=== PATIENT | female | born 2000 | race Caucasian/White ===

== ENCOUNTER 2023-04-03 14:27 | Emergency (ER) | payer OTHER ==
[2023-04-03 15:02] LABS: BASOPHILS ABSOLUTE AUTO 0.04 K/uL (0.00-0.20); BASOPHILS PERCENT AUTO 0.7 % (0.0-1.0); EOSINOPHILS ABSOLUTE AUTO 0.06 K/uL (0.00-0.45); EOSINOPHILS PERCENT AUTO 1.1 % (0.0-6.0); HEMATOCRIT 41.3 % (37.0-47.0); HEMOGLOBIN 14.7 g/dL (12.0-16.0); IMMATURE GRAN ABSOLUTE AUTO 0.01 K/uL (0.00-0.05); IMMATURE GRAN PERCENT AUTO 0.2 % (0.0-0.4); LYMPHOCYTES ABSOLUTE AUTO 1.62 K/uL (1.00-4.80); LYMPHOCYTES PERCENT AUTO 29.7 % (24.0-44.0); MEAN CORPUSCULAR HEMOGLOBIN 32.5 pg (28.0-32.0); MEAN CORPUSCULAR HGB CONC 35.6 g/dL (32.0-36.0); MEAN CORPUSCULAR VOLUME 91.4 fL (83.0-99.0); MEAN PLATELET VOLUME 11.5 fL (9.4-12.3); MONOCYTES ABSOLUTE AUTO 0.46 K/uL (0.00-0.80); MONOCYTES PERCENT AUTO 8.4 % (0.0-8.0); NEUTROPHILS ABSOLUTE AUTO 3.27 K/uL (1.80-7.70); NEUTROPHILS PERCENT AUTO 59.9 % (41.0-71.0); PLATELET COUNT,PLT 200 K/uL (150-400); RED BLOOD CELL COUNT 4.52 M/uL (4.10-5.30); WHITE BLOOD CELL COUNT,WBC 5.46 K/uL (3.9-11.3)
[2023-04-03 15:21] LABS: BILIRUBIN,URINE NEGATIVE (NEGATIVE); COLOR,URINE YELLOW; GLUCOSE,URINE NEGATIVE (NEGATIVE); KETONES,URINE TRACE mg/dL (NEGATIVE); LEUKOCYTE ESTERASE,URINE NEGATIVE (NEGATIVE); NITRITE,URINE NEGATIVE (NEGATIVE); PH,URINE 6.5 (5.0-8.0); PROTEIN,URINE NEGATIVE (NEGATIVE)
[2023-04-03 15:32] LABS: APPEARANCE,URINE HAZY
[2023-04-03 15:36] LABS: OCCULT BLOOD,URINE SMALL (NEGATIVE)
[2023-04-03 15:37] LABS: BACTERIA,URINE 1+ (NEGATIVE); EPITHELIAL CELLS,URINE FEW (NONE-FEW); RBC,URINE 0-3 (0-2/HPF); WBC,URINE 0-3 (0-5/HPF)
[2023-04-03 15:52] LABS: A/G RATIO 1.3 (0.9-1.6); ALANINE AMINOTRANSFERASE,ALT 19 IU/L (14-63); ALBUMIN 4.3 g/dL (3.4-5.0); ALKALINE PHOSPHATASE 48 U/L (46-116); ASPARTATE AMNIOTRANSFERASE,AST 14 IU/L (15-37); BILIRUBIN TOTAL 0.7 mg/dL (0.2-1.0); BLOOD UREA NITROGEN,BUN 6 mg/dL (7.0-18.0); CARBON DIOXIDE,CO2 23.1 mmol/L (21.0-32.0); CHLORIDE,CL 103 mmol/L (98-107); CREATININE 0.8 mg/dL (0.6-1.0); ESTIMATED GFR 107 mL/min (>60); GLUCOSE RANDOM 79 mg/dL (74-106); POTASSIUM,K 3.2 mmol/L (3.5-5.1); PROTEIN TOTAL,TP 7.6 g/dL (6.4-8.2); SODIUM,NA 138 mmol/L (136-145)
== END 2023-04-03 18:23 | disposition home or self-care (01) ==
LOC: MW.ED 14:27
DX: O20.0 Threatened abortion (principal); Z88.0 Allergy status to penicillin; Z3A.01 Less than 8 weeks gestation of pregnancy
CPT/HCPCS: 36415; 76817; 76817-26; 80053; 81001; 84702; 85025; 86900; 86901; 99283; 99284

== ENCOUNTER 2023-12-06 17:53 | Inpatient (IN) | payer OTHER ==
[2023-12-06] MEDS ORDERED: Methylergonovine 0.2 MG/1 ML Amp IM PRN (18:10)
[2023-12-06] MEDS ORDERED: Butorphanol 2 MG/ML SDV IVPUSH PRN (18:10)
[2023-12-06] MEDS ORDERED: Water For Irrigation,Sterile 1,000 ML Container IRR PRN (18:10)
[2023-12-06] MEDS ORDERED: Ondansetron 4 MG/2 ML SDV IVPUSH PRN (18:10)
[2023-12-06] MEDS ORDERED: Sodium Chloride 0.9% 2.5 ML Syringe FLUSH PRN (18:10)
[2023-12-06] MEDS: Lactated Ringers 1,000 ML IV SCH (18:10)
[2023-12-06] MEDS ORDERED: Lidocaine 1% 50 ML MDV INJECT PRN (18:10)
[2023-12-06] MEDS ORDERED: Misoprostol 200 MCG Tab PO PRN (18:10)
[2023-12-06] MEDS ORDERED: Sodium Chloride 0.9% 20 ML SDV IV PRN (18:10)
[2023-12-06] MEDS ORDERED: Tranexamic Acid IN NACL,ISO-OS 1,000 MG in Premix Bag 1 BAG IV PRN (18:10)
[2023-12-06] MEDS ORDERED: Carboprost Tromethamine 250 MCG/1 mL Vial IM PRN (18:10)
[2023-12-06] MEDS ORDERED: Oxytocin/0.9 % Sodium Chloride 30 UNIT/500 ML BAG IV SCH (18:15)
[2023-12-06] MEDS ORDERED: ePHEDrine 50 MG/ML SDV IVPUSH PRN ×2 (18:25)
[2023-12-06] MEDS ORDERED: dexmedeTOMIDine HCl 200 MCG/2 ML SDV EPIDUR SCH (18:30)
[2023-12-06] MEDS: VANCOmycin 1.5 GM/300 ML 1.5 GM in Premix Bag 1 BAG IV SCH (18:31)
[2023-12-06 18:44] LABS: HEMATOCRIT 35.8 % (37.0-47.0); HEMOGLOBIN 12.4 g/dL (12.0-16.0); MEAN CORPUSCULAR HEMOGLOBIN 30.3 pg (28.0-32.0); MEAN CORPUSCULAR HGB CONC 34.6 g/dL (32.0-36.0); MEAN CORPUSCULAR VOLUME 87.5 fL (83.0-99.0); MEAN PLATELET VOLUME 11.9 fL (9.4-12.3); PLATELET COUNT,PLT 170 K/uL (150-400); RED BLOOD CELL COUNT 4.09 M/uL (4.10-5.30); WHITE BLOOD CELL COUNT,WBC 7.51 K/uL (3.9-11.3)
[2023-12-06] MEDS: Ropivacaine HCl/PF 400 MG in Premix Bag 1 BAG EPIDUR SCH (19:17)
[2023-12-06] MEDS: Phenylephrine HCl In 0.9% NaCl 1 MG/10 ML Syringe IVPUSH PRN (20:21)
[2023-12-06] MEDS: Sodium Chloride 0.9% 10 ML Syringe FLUSH PRN (20:24)
[2023-12-06] MEDS: diphenhydrAMINE 50 MG/ML SDV IVPUSH ONE (21:48)
[2023-12-07] MEDS: Oxytocin/0.9 % Sodium Chloride 30 UNIT/500 ML BAG IV SCH (00:14)
[2023-12-07] MEDS ORDERED: Misoprostol 200 MCG Tab RECTAL PRN (03:06)
[2023-12-07] MEDS ORDERED: Witch Hazel Medicated Pads 40/Jar TOP PRN (03:06)
[2023-12-07] MEDS ORDERED: Tranexamic Acid IN NACL,ISO-OS 1,000 MG in Premix Bag 1 BAG IV PRN (03:06)
[2023-12-07] MEDS ORDERED: Docusate Sodium 100 MG Cap PO PRN (03:06)
[2023-12-07] MEDS ORDERED: Lanolin 100% Cream 7 GM Tube TOP PRN (03:06)
[2023-12-07] MEDS ORDERED: Acetaminophen 500 MG Tab PO PRN (03:06)
[2023-12-07] MEDS ORDERED: Benzocaine/Menthol 20%-0.5% Spray 78 GM Cannister TOP PRN (03:06)
[2023-12-07] MEDS ORDERED: Methylergonovine 0.2 MG/1 ML Amp IM PRN (03:06)
[2023-12-07 03:37] LABS: PH,UMBILICAL ARTERIAL 7.244 (7.18-7.38); PH,UMBILICAL VENOUS 7.281 (7.25-7.45)
[2023-12-07] MEDS: Ibuprofen 800 MG Tab PO PRN (12:01)
[2023-12-08 05:45] LABS: HEMATOCRIT 33.5 % (37.0-47.0); HEMOGLOBIN 11.3 g/dL (12.0-16.0)
== END 2023-12-09 14:20 | disposition home or self-care (01) | DRG 806 ==
LOC: MW.OBCHECK 17:53 → MW.OB 17:54 → MW.OBCHECK 18:10 → OBSVTOIN 12-07 02:38 → MW.OB 12-07 12:31
PROVIDERS: ADMIT Obstetrics & Gynecology; ATTEND Obstetrics & Gynecology
PROC: 10E0XZZ Delivery of Products of Conception, External Approach (ICD-10-PCS; principal; 2023-12-07)
PROC: 3E0R3BZ Introduction of Anesthetic Agent into Spinal Canal, Percutaneous Approach (ICD-10-PCS; 2023-12-07)
PROC: 00HU33Z Insertion of Infusion Device into Spinal Canal, Percutaneous Approach (ICD-10-PCS; 2023-12-07)
PROC: 0UQG7ZZ Repair Vagina, Via Natural or Artificial Opening (ICD-10-PCS; 2023-12-07)
DX: O48.0 Post-term pregnancy (principal); O71.4 Obstetric high vaginal laceration alone; Z37.0 Single live birth; O99.824 Streptococcus B carrier state complicating childbirth; O69.81X0 Labor and delivery complicated by cord around neck, without compression, not applicable or unspecified; Z3A.40 40 weeks gestation of pregnancy
CPT/HCPCS: 01967; 36415; 51702; 59025; 59409; 82803; 85014; 85018; 85027; 86592; 86850; 86900; 86901; A9270-GY; J1200; J2371; J2590; J2795; J3372; J3490; J7120

== ENCOUNTER 2024-06-28 00:46 | Emergency (ER) | payer MEDICAID, OTHER ==
[2024-06-28] MEDS: Diphtheria,Pertussis(Acell),Tetanus Vaccine 0.5 ML Syringe IM ONE (01:58)
[2024-06-28] MEDS: Lidocaine 2% 5 ML SDV INJECT ONE ×2 (02:43→03:05)
[2024-06-28] MEDS: Bacitracin Oint 1 GM U/D Packet TOP ONE (03:07)
== END 2024-06-28 03:10 | disposition home or self-care (01) ==
LOC: MW.ED 00:46
DX: S51.812A Laceration without foreign body of left forearm, initial encounter (principal); Z88.0 Allergy status to penicillin; Z79.899 Other long term (current) drug therapy; Z23 Encounter for immunization; X78.9XXA Intentional self-harm by unspecified sharp object, initial encounter; Y93.89 Activity, other specified
CPT/HCPCS: 12002; 90471; 90715; 99284-25; J3490

== ENCOUNTER 2024-07-12 13:25 | Emergency (ER) | payer OTHER | END 2024-07-12 14:24 | disposition home or self-care (01) | LOC: MW.ED 13:25 | DX: S51.812D Laceration without foreign body of left forearm, subsequent encounter (principal); X78.9XXD Intentional self-harm by unspecified sharp object, subsequent encounter | CPT/HCPCS: 99281 ==